=== PATIENT | male | born 1975 | race Caucasian/White ===

== ENCOUNTER 2018-10-17 15:53 | Emergency (ER) | payer OTHER ==
[~2018-10-17] VITALS: Ht 180.3 cm; Wt 59.9 kg
--- NOTE | ~2018-10-17 | EKG ---
[place] [address] [facility] [place] [address] ELECTROCARDIOGRAM REPORT Name: EPIFANIO WALL Room #: [facility]#: [id number] Admission: 10/17/18 Attend Phys: Discharge: 10/17/18 Date of : 73 Report #: [id number] THIS REPORT FOR: //name// [facility] ED Test Date: 2018-10-17 Test Time: 15:58:25 Pat Name: EPIFANIO WALL Department: Room: Gender: M Banquet Cook: BAYRON : 1975 Requested By: Marilee Villarreal Order Number: [id number] MD: Thomas Palomo Measurements Intervals [place] Rate: 62 P: 76 VT: 156 QRS: -34 QRSD: 105 T: 71 QT: 412 QTc: 419 Interpretive Statements Sinus rhythm Atrial premature complexes RSR' in V1 or V2, probably normal variant ST elev, probable normal early repol pattern Compared to ECG 01/18/2016 14:14:32 No significant change was found Electronically Signed On 10-18-2018 8:18:45 [employer] by Thomas Palomo [email or web address] <ELECTRONICALLY SIGNED> By: Thomas Palomo MD, [facility] 10/18/18 0818 [id number] Thomas Palomo MD, [facility] /EPI
[~2018-10-17 15:53] MED LIST: AUGMENTIN 875875 MG PO; BRINTELLIX10 MG PO; GABAPENTIN 100100 MG; LITHIUM CARBON300 M3 PO; MELATONIN3 MG; NEURONTIN 300300 M1 PO; NORCO 5-325 TA1 EACH PO; OLANZAPINE10 MG PO; SEROQUEL 50 MG50 MG PO; UNICOMPLEX M TA1 TA1 PO; VISTARIL 25 MG25 M1 PO; VITAMIN D1000 UNI1 PO; WELLBUTRIN 100100 MG
[2018-10-17 16:37] LABS: ABSOLUTE NEUTROPHILS 3.6 thou/uL (1.4-8.2); BASOPHILS 0.6 % (0.0-2.0); HEMATOCRIT 46.7 % (42.0-52.0); HEMOGLOBIN 15.9 gm/dL (14.0-18.0); LYMPHOCYTES 25.6 % (24.0-44.0); MCH 32.2 pg (26.0-34.0); MCHC 34.1 g/dL (28.0-37.0); MCV 94.3 fL (80.0-100.0); MONOCYTES 8.2 % (1.0-8.0); PLATELET COUNT 285 thou/uL (150-400); POLYS 64.6 % (36.0-66.0); RBC 4.95 mil/uL (4.50-6.00); RDW 13.3 % (10.5-14.5); WBC 5.5 thou/uL (4.0-11.0)
[2018-10-17 16:43] LABS: ANION GAP 5 mmol/L (7-16); BUN 14 mg/dL (7-18); CALCIUM 9.2 mg/dL (8.5-10.1); CHLORIDE 106 mmol/L (98-107); CO2 31 mmol/L (21-32); CREATININE 0.9 mg/dL (0.7-1.3); GLUCOSE 81 mg/dL (74-106); SODIUM 142 mmol/L (136-145)
[2018-10-17 16:52] LABS: ALBUMIN 3.8 g/dL (3.4-5.0); LIPASE 249 U/L (73-393); SGOT 16 U/L (15-37); SGPT 33 U/L (30-65); TOTAL BILIRUBIN 0.5 mg/dL (<0.1-1.0); TOTAL PROTEIN 7.3 g/dL (6.4-8.2); TROPONIN-I <0.06 ng/mL (<0.06)
[2018-10-17 17:28] LABS: URINE BILIRUBIN NEGATIVE (Negative); URINE BLOOD NEGATIVE (Negative); URINE CLARITY CLEAR; URINE COLOR YELLOW; URINE GLUCOSE-RANDOM* NEGATIVE (Negative); URINE KETONES NEGATIVE (Negative); URINE LEUKOCYTES-REFLEX NEGATIVE (Negative); URINE NITRITE-REFLEX NEGATIVE (Negative); URINE PROTEIN (DIPSTICK) NEGATIVE (Negative); URINE UROBILINOGEN 0.2 E.U./dl (0.2-1.0)
[2018-10-17] MEDS ORDERED: ZANTAC 150MG T150 MG PO (17:40)
[2018-10-17 18:10] VITALS: BP 108/79
== END 2018-10-17 18:11 | disposition home or self-care (01) ==
LOC: ER 15:53
PROVIDERS: Nurse Practitioner Family
DX: R07.89 Other chest pain (principal)